=== PATIENT | male | born 1985 | race Two or more races ===

== ENCOUNTER 2019-04-27 23:44 | Emergency (ER) | payer BC ==
[~2019-04-27] VITALS: Ht 335.3 cm; Wt 75.3 kg
--- NOTE | 2019-04-28 01:08 | NUR ---
PT AMBULATORY. RAN OUT OF ROOM. VSS. STABLE GAIT.
--- NOTE | 2019-04-28 01:08 | NUR ---
PT ELOPED FROM EMERGENCY DEPARTMENT.
[2019-04-28 01:09] VITALS: BP 133/81
== END 2019-04-28 01:15 | disposition left against medical advice (07) ==
LOC: ER 23:48
DX: F10.129 Alcohol abuse with intoxication, unspecified (principal); Y90.9 Presence of alcohol in blood, level not specified
CPT/HCPCS: 82962-TC